=== PATIENT | female | born 1980 | race African-American/Black ===

== ENCOUNTER 2022-10-16 18:28 | Emergency (ER) | payer OTHER, SELFPAY ==
[2022-10-16] VITALS (10 sets, daily range): BP systolic 144–166; BP diastolic 92–104; PULSE 75–83; RESP 13–23; TEMP 36.6; O2SAT 99–100
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
--- NOTE | ~2022-10-16 | XR_ITS ---
XR knee LT 3V 10/16/2022 19:57 INDICATION: Left knee pain PROCEDURE: 2 views left knee COMPARISON: No prior studies for comparison. FINDINGS: Fracture, dislocation or subluxation is not identified. No significant joint effusion. The soft tissues appear within normal limits. No foreign bodies are identified. IMPRESSION: 1: NO ACUTE BONE OR JOINT ABNORMALITY IDENTIFIED. Reviewed, dictated and finalized at location A. UNICATIONS DEPARTMENT CHAIR
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
[2022-10-16 20:33] LABS: Basophils Percent Auto 0.3 % (0.2-1.2); Eosinophils Absolute Auto 0.1 K/mm3 (0-0.3); Eosinophils Percent Auto 0.6 % (0-4.4); Hematocrit 35.5 % (37.0-47.0); Hemoglobin 11.4 g/dL (12.0-15.0); Immature Granulocyte Absolute 0.03 K/mm3 (0.00-0.031); Immature Granulocyte Percent A 0.3 % (0-0.5); Lymphocytes Absolute Auto 1.38 K/mm3 (0.9-3.2); Lymphocytes Percent Auto 13.2 % (18.3-44.2); Mean Corpuscular HGB Conc 32.1 g/dl (32-36); Mean Corpuscular Hemoglobin 27.3 pg (26-34); Mean Corpuscular Volume 84.9 fl (80-100); Mean Platelet Volume 9.8 fl (7.4-10.4); Monocytes Absolute Auto 0.6 K/mm3 (0.1-0.6); Monocytes Percent Auto 5.4 % (2.6-8.5); Neutrophils Absolute Auto 8.4 K/mm3 (1.3-6.7); Neutrophils Percent Auto 80.2 % (45.5-73.1); Platelet Count Result 342 k/mm3 (150-375); Red Blood Count 4.18 M/mm3 (4.2-5.4); Red Cell Distribution Width 15.2 % (11.5-14.5); White Blood Count 10.4 K/mm3 (4.5-10.0)
[2022-10-16] MEDS: MORPHINE SULFATE (*CRX) 4 MG/ML INJ IV PUSH (20:35)
[2022-10-16 20:42] LABS: Alanine Aminotransferase 14 U/L (6-35); Albumin Level 4.3 g/dL (3.5-5.1); Alkaline Phosphatase 62 U/L (38-126); Anion Gap 7 mmol/L (8-16); Aspartate Amino Transferase 25 U/L (14-36); Bilirubin,Total 0.4 mg/dL (0.2-1.3); Blood Urea Nitrogen 8 mg/dL (7-17); Calcium 8.8 mg/dL (8.4-10.2); Carbon Dioxide 22 mmol/L (22-30); Chloride 107 mmol/L (98-107); Estimated CRCL calculation 75 ml/min; Estimated Glomerular Filt Rate > 60; Glucose 80 mg/dL (65-110); Lipase 87 U/L (23-300); Potassium 3.4 mmol/L (3.4-5.0); Sodium 136 mmol/L (137-145)
== END 2022-10-16 22:20 | disposition home or self-care (01) ==
PROVIDERS: Emergency Provider Emergency Medicine
DX: S89.92XA Unspecified injury of left lower leg, initial encounter (principal); S09.90XA Unspecified injury of head, initial encounter; D25.9 Leiomyoma of uterus, unspecified; K76.9 Liver disease, unspecified; V43.52XA Car driver injured in collision with other type car in traffic accident, initial encounter
CPT/HCPCS: 36415; 70450; 71260; 72125; 73562; 74177; 80048; 80076; 83690; 85025; 96374; 99284; J2270; Q9967

== ENCOUNTER 2023-01-13 09:57 | Emergency (ER) | payer OTHER, SELFPAY ==
[2023-01-13 10:24] VITALS: BP 130/87; PULSE 97; RESP 18; TEMP 37.3; O2SAT 98
--- NOTE | 2023-01-13 14:17 | PC.NURSE ---
EDP at bedside to assess pt.
[2023-01-13 14:31] LABS: Basophils Percent Auto 0.3 % (0.2-1.2); Hematocrit 37.6 % (37.0-47.0); Immature Granulocyte Absolute 0.02 K/mm3 (0.00-0.031); Immature Granulocyte Percent A 0.3 % (0-0.5); Lymphocytes Absolute Auto 0.74 K/mm3 (0.9-3.2); Lymphocytes Percent Auto 10.5 % (18.3-44.2); Mean Corpuscular HGB Conc 31.9 g/dl (32-36); Mean Corpuscular Hemoglobin 27.6 pg (26-34); Mean Corpuscular Volume 86.6 fl (80-100); Mean Platelet Volume 9.7 fl (7.4-10.4); Monocytes Absolute Auto 0.7 K/mm3 (0.1-0.6); Monocytes Percent Auto 9.5 % (2.6-8.5); Neutrophils Absolute Auto 5.6 K/mm3 (1.3-6.7); Neutrophils Percent Auto 79.4 % (45.5-73.1); Platelet Count Result 289 k/mm3 (150-375); Red Blood Count 4.34 M/mm3 (4.2-5.4); Red Cell Distribution Width 15.6 % (11.5-14.5); White Blood Count 7.1 K/mm3 (4.5-10.0)
[2023-01-13 14:35] LABS: Alanine Aminotransferase 15 U/L (6-35); Albumin Level 4.4 g/dL (3.5-5.1); Alkaline Phosphatase 62 U/L (38-126); Anion Gap 6 mmol/L (8-16); Aspartate Amino Transferase 28 U/L (14-36); Bilirubin,Total 0.4 mg/dL (0.2-1.3); Blood Urea Nitrogen 7 mg/dL (7-17); Calcium 8.9 mg/dL (8.4-10.2); Carbon Dioxide 22 mmol/L (22-30); Chloride 102 mmol/L (98-107); Estimated CRCL calculation 77 ml/min; Estimated Glomerular Filt Rate > 60; Glucose 123 mg/dL (65-110); Magnesium 1.9 mg/dL (1.6-2.3); Potassium 3.3 mmol/L (3.4-5.0); Sodium 130 mmol/L (137-145)
[2023-01-13 14:58] LABS: Hypochromasia 1+ (NORMAL); Platelet Estimate Adequate (Adequate)
--- NOTE | 2023-01-13 14:58 | ED.GENADULT ---
HPI - General Adult General Chief complaint: Extremity Problem,Nontraumatic Stated complaint: MUSCLE SPASMS Time Seen by Provider: 01/13/23 13:48 History of Present Illness HPI narrative: 42-year-old female presented the emergency department for evaluation of intermittent lower extremity cramping. Patient states that the symptoms started last night. Patient reports that she attempted to go to work but the cramps worsened. Patient denies any associated chest pain or shortness of breath. Patient denies any nausea vomiting diarrhea. At time of evaluation patient is resting comfortably and appears to be in no distress. Related Data Home Medications Medication Instructions Recorded Confirmed bictegravir 50 mg-emtricitabine 1 tablet PO DAILY 10/16/22 200 mg-tenofovir alafenam 25 mg tablet (Biktarvy) Allergies Allergy/AdvReac Type Severity Reaction Status Date / Time No Known Allergies Allergy Verified 10/16/22 19:38 Review of Systems Review of Systems: All systems reviewed & are unremarkable except as noted in HPI and below PMFSH Past Medical History Medical History (Updated 01/14/23 @ 00:00 by Adam Crawford) Cerebral aneurysm rupture Surgical History Surgical History (Updated 10/16/22 @ 20:14 by Jimi Baez MD) H/O brain surgery Social History Social History (Updated 10/16/22 @ 20:14 by Jimi Baez MD) Smoking status: Never smoker Exam Narrative: APPEARANCE: Well appearing, no pain, no distress, well-nourished. HEAD: normocephalic, atraumatic. EYES: PERRLA/EOMI, conjunctivae clear. NOSE: Normal no drainage NECK: Supple. No adenopathy, no masses. RESPIRATORY: Airway patent, respirations nonlabored. Clear to auscultation bilaterally, no rales, rhonchi, wheezing. CARDIOVASCULAR: Regular rate and rhythm without murmurs rubs or gallops. ABDOMINAL: Soft, nontender, nondistended, normal bowel sounds MUSCULOSKELETAL: Moves all extremities. Strength/ROM intact, No edema, No calf tenderness. NEURO: Alert. Cranial nerves II through XII intact. Grossly intact SKIN: Warm, dry. Normal Color Course Course Emergency Course: 42-year-old female with history of lower extremity cramping. Patient is afebrile with no leukocytosis. Patient was hyponatremic and hypokalemic. Patient was treated with 1 L of normal saline and p.o. potassium. On reevaluation patient reports she does feel improved. Patient was updated the results of her work-up and was encouraged to increase her fluid intake and to have a well-balanced diet. Patient was also encouraged of close follow-up with her primary care physician. All questions and concerns were addressed. Patient was comfortable with the plan for discharge and close follow-up. Vital Signs Vital signs: Vital Signs Temperature 99.1 F 01/13/23 10:24 Pulse Rate 97 01/13/23 10:24 Respiratory Rate 18 01/13/23 10:24 Blood Pressure 130/87 01/13/23 10:24 Pulse Oximetry 98 01/13/23 10:24 Oxygen Delivery Room Air 01/13/23 10:24 Temperature 99.1 F 01/13/23 10:24 Pulse Rate 97 01/13/23 10:24 Respiratory Rate 18 01/13/23 10:24 Blood Pressure 130/87 01/13/23 10:24 Pulse Oximetry 98 01/13/23 10:24 Oxygen Delivery Room Air 01/13/23 10:24 Medical Decision Making Vital Signs Vital Signs: Vital Signs Temperature 99.1 F 01/13/23 10:24 Pulse Rate 97 01/13/23 10:24 Respiratory Rate 18 01/13/23 10:24 Blood Pressure 130/87 01/13/23 10:24 Pulse Oximetry 98 01/13/23 10:24 Oxygen Delivery Room Air 01/13/23 10:24 Temperature 99.1 F 01/13/23 10:24 Pulse Rate 97 01/13/23 10:24 Respiratory Rate 18 01/13/23 10:24 Blood Pressure 130/87 01/13/23 10:24 Pulse Oximetry 98 01/13/23 10:24 Oxygen Delivery Room Air 01/13/23 10:24 Lab Data Lab results reviewed: Yes I reviewed the patient's lab results. 01/13/23 14:16 01/13/23 14:16 Labs: Lab Results 03
[2023-01-13 15:05] LABS: Schistocytes None Seen (NORMAL)
[2023-01-13] MEDS: SODIUM CHLORIDE 0.9% IV 1,000 ML 999 ML IV CONT (15:08)
[2023-01-13] MEDS: POTASSIUM CHLORIDE 20 MEQ PACKET (FOR LIQUID) 40 MEQ (15:08)
--- NOTE | 2023-01-21 08:35 | PC.NURSE ---
Normal Saline IV infusion completed prior to discharge on 01/13/23 at 1622. PIV removed prior to discharge.
== END 2023-01-13 16:22 | disposition home or self-care (01) ==
PROVIDERS: Emergency Provider Emergency Medicine; PCP Family Medicine
DX: E87.6 Hypokalemia (principal); E87.1 Hypo-osmolality and hyponatremia
CPT/HCPCS: 36415; 80053; 83735; 85025; 96360; 99283; A9270; J7030